=== PATIENT | female | born 1985 | race African-American/Black ===

== ENCOUNTER 2017-03-17 01:42 | Emergency (ER) | payer SELFPAY ==
[~2017-03-17] VITALS: Ht 180.3 cm; Wt 78.0 kg
[2017-03-17 02:09] VITALS: BP 121/51
== END 2017-03-17 03:25 | disposition left against medical advice (07) ==
LOC: ER 01:42
DX: Z53.21 Procedure and treatment not carried out due to patient leaving prior to being seen by health care provider (principal)

== ENCOUNTER 2017-12-08 11:35 | Emergency (ER) | payer MEDICAID ==
[~2017-12-08] VITALS: Ht 180.3 cm; Wt 75.0 kg
[2017-12-08 11:37] VITALS: BP 112/59
== END 2017-12-08 14:52 | disposition home or self-care (01) ==
LOC: ER 11:35 → EDSEX 11:35 → ER 14:52
DX: B00.1 Herpesviral vesicular dermatitis (principal); F12.10 Cannabis abuse, uncomplicated; F14.10 Cocaine abuse, uncomplicated; Z98.890 Other specified postprocedural states
CPT/HCPCS: 99282